=== PATIENT | male | born 1975 | race Caucasian/White ===

== ENCOUNTER → 2021-09-18 13:29 | Outpatient (BNVA) | payer OTHER, SELFPAY | PROVIDERS: Family Provider Family Medicine; PCP Family Medicine; Visit Provider Family Medicine Adult Medicine | DX: S99.911A Unspecified injury of right ankle, initial encounter (principal); M25.471 Effusion, right ankle; W19.XXXA Unspecified fall, initial encounter | CPT/HCPCS: 73610; 73630 ==